=== PATIENT | male | born 1950 | race Asian ===

== ENCOUNTER 2021-02-26 00:07 | Emergency (ER) | payer MEDICARE, OTHER ==
[~2021-02-26] VITALS: Ht 175.3 cm; Wt 68.0 kg
[2021-02-26 00:48] LABS: Basophils # (auto) 0.1 10 ^3/uL (0-0.2); Basophils % (auto) 0.7 % (0.0-2.0); Eosinophils # (auto) 0.2 10 ^3/uL (0-0.8); Eosinophils % (auto) 2.6 % (0.0-7.0); Hemoglobin 14.6 g/dL (13.5-17.5); Lymphocytes # (auto) 2.1 10 ^3/uL (0.4-5.4); Mean Corpuscular Hemoglobin 30.3 pg (28.0-32.0); Monocytes # (auto) 0.6 10 ^3/uL (0-1.3); Monocytes % (auto) 7.4 % (0.0-12.0); Neutrophils # (auto) 5.6 10 ^3/uL (1.6-8.6); Neutrophils % (auto) 65.3 % (37.0-80.0); Nucleated Red Blood Cells % 0.1 %; Platelet Count (auto) 166 10^3/uL (140-450); Red Blood Cells 4.83 10^6/uL (4.5-5.90); Red Cell Distribution Width 13.3 % (11.8-14.3); White Blood Cell 8.6 10^3/uL (4.4-10.8)
[2021-02-26 00:57] LABS: Albumin 3.5 g/dL (3.4-5.0); Anion Gap 7 (5-15); BUN/Creatinine Ratio 14.7; Blood Urea Nitrogen 29 mg/dL (7-18); Calcium 8.3 mg/dL (8.5-10.1); Carbon Dioxide 23 mmol/L (21-32); Chloride 109 mmol/L (98-107); GFR African American 43 mL/min; GFR Non-African American 36 mL/min; Glucose 95 mg/dL (74-106); Magnesium 2.2 mg/dL (1.6-2.6); Potassium 3.9 mmol/L (3.5-5.1); Sodium 139 mmol/L (136-145)
[2021-02-26 01:06] LABS: Alanine Aminotransferase 38 U/L (16-61); Alkaline Phosphatase 54 U/L (45-117); Aspartate Aminotransferase 44 U/L (15-37); Bilirubin, Total 0.4 mg/dL (0.2-1.0)
[2021-02-26 03:10] LABS: INR 1.03 (0.9-1.15); Partial Thromboplastin Time 26.1 sec (23.0-31.2)
[2021-02-26] MEDS ORDERED: SODIUM CHLORIDE 0.9% 3,000 ML IV ONE (04:00)
[2021-02-26 05:26] LABS: Amphetamine Screen, Urine NEGATIVE (NEGATIVE); Barbiturate Scree,Urine NEGATIVE (NEGATIVE); Benzodiazephine Screen, Urine NEGATIVE (NEGATIVE); Cannabinoid Screen, Urine NEGATIVE (NEGATIVE); Cocaine Screen, Urine NEGATIVE (NEGATIVE); Opiate Scree,Urine NEGATIVE (NEGATIVE); Phencyclidine Screen, Urine NEGATIVE (NEGATIVE)
[2021-02-26 05:29] LABS: Urine Bacteria NONE SEEN /hpf (None Seen); Urine Blood Negative /uL (Negative); Urine WBC 2 /hpf (0 - 3)
[2021-02-26 06:00] VITALS: BP 117/66
== END 2021-02-26 06:43 | disposition home or self-care (01) ==
LOC: ER 00:07 → EDBD 00:07 → ER 06:43
DX: S00.03XA Contusion of scalp, initial encounter (principal); F10.129 Alcohol abuse with intoxication, unspecified; I10 Essential (primary) hypertension; E78.5 Hyperlipidemia, unspecified; Z95.0 Presence of cardiac pacemaker; W18.39XA Other fall on same level, initial encounter; Y93.89 Activity, other specified; Y92.89 Other specified places as the place of occurrence of the external cause; Y99.8 Other external cause status; Y90.6 Blood alcohol level of 120-199 mg/100 ml
CPT/HCPCS: 36415; 70450; 71045; 72125; 80053; 80307; 80320; 81001; 83735; 84484; 85025; 85610; 85730; 93005; 96360; 99285; J7030